=== PATIENT | female | born 1980 | race Hispanic/Latino ===

== ENCOUNTER 2017-10-19 17:44 | Emergency (ER) | payer MEDICAID, OTHER ==
[2017-10-19 18:29] LABS: APPEARANCE,URINE Clear (CLEAR); BILIRUBIN,URINE Negative (NEGATIVE); COLOR,URINE Yellow (YELLOW); GLUCOSE, URINE (UA) Negative (NEGATIVE); KETONES,URINE Negative (NEGATIVE); LEUKOCYTE ESTERASE ,URINE Negative (NEGATIVE); NITRATE,URINE Negative (NEGATIVE); OCCULT BLOOD,URINE Trace (NEGATIVE); PROTEIN,URINE Negative (NEGATIVE); UROBILINOGEN,URINE 0.2 mg/dL (0.2-1.0)
[2017-10-19 18:29] LABS: EOSINOPHILS % (AUTO) 0.6 % (0.0-8.0); HEMATOCRIT 41.1 % (36-48); MEAN CORPUSCULAR HEMOGLOBIN 31.5 pg (27.0-33.0); MEAN CORPUSCULAR HGB CONC 34.3 g/dL (32.0-36.0); MEAN CORPUSCULAR VOLUME 91.6 fL (79-99); MONOCYTES % (AUTO) 7.8 % (3.0-13.0); NEUTROPHILS % (AUTO) 72.6 % (40.0-77.0); PLATELET COUNT (AUTO) 281 K/uL (130-400); RED BLOOD CELL COUNT(AUTO) 4.49 MIL/uL (4.00-5.50); RED CELL DISTRIBUTION WIDTH 13.4 % (11.0-15.5); WHITE BLOOD COUNT (AUTO) 9.4 K/uL (4.8-10.8)
[2017-10-19] MEDS ORDERED: MORPHINE SULFATE 4 MG/1ML SYG ONE (18:29)
[2017-10-19] MEDS ORDERED: SODIUM CHLORIDE 0.9% 1000ML 1,000 ML IV ONE (18:29)
[2017-10-19] MEDS ORDERED: ONDANSETRON HCL 4 MG/2 ML VIAL ONE (18:30)
[2017-10-19 18:31] LABS: HCG,QUAL RESULT NEGATIVE (NEGATIVE)
[2017-10-19 18:38] LABS: CREATININE 0.8 mg/dL (0.5-1.5); POTASSIUM 3.5 mmol/L (3.5-5.1)
[2017-10-19 18:41] LABS: BACTERIA,URINE None Seen /HPF (None Seen); RBC,URINE 0-1 /HPF (0-1); SQUAMOUS EPITHELIAL CELL,UR 0-2 /HPF (0-2); WBC,URINE None Seen /HPF (0-1)
[2017-10-19] MEDS ORDERED: KETOROLAC TROMETHAMINE 30MG/ML ONE (19:34)
== END 2017-10-19 20:06 | disposition home or self-care (01) ==
LOC: EDH 17:44
DX: S39.012A Strain of muscle, fascia and tendon of lower back, initial encounter (principal); R35.0 Frequency of micturition; X58.XXXA Exposure to other specified factors, initial encounter; Y93.89 Activity, other specified; Y92.89 Other specified places as the place of occurrence of the external cause; Y99.8 Other external cause status
CPT/HCPCS: 36415; 74176; 80048; 81001; 81025; 85025; 96374; 96375; 99285; J1885; J2270; J2405; J7030

== ENCOUNTER 2018-06-06 07:25 | Emergency (ER) | payer SELFPAY ==
[2018-06-06 07:58] LABS: APPEARANCE,URINE Clear (CLEAR); BILIRUBIN,URINE Negative (NEGATIVE); COLOR,URINE Yellow (YELLOW); GLUCOSE, URINE (UA) Negative (NEGATIVE); KETONES,URINE Negative (NEGATIVE); LEUKOCYTE ESTERASE ,URINE Trace (NEGATIVE); NITRATE,URINE Negative (NEGATIVE); OCCULT BLOOD,URINE Small (NEGATIVE); PH,URINE 6.5 (5.0-8.0); PROTEIN,URINE Negative (NEGATIVE)
[2018-06-06 08:03] LABS: HCG,QUAL RESULT NEGATIVE (NEGATIVE)
[2018-06-06 08:09] LABS: BACTERIA,URINE Rare /HPF (None Seen); RBC,URINE 0-1 /HPF (0-1); SQUAMOUS EPITHELIAL CELL,UR Rare /HPF (0-2); WBC,URINE 0-1 /HPF (0-1)
[2018-06-06] MEDS ORDERED: ORPHENADRINE CITRATE 30 MG/ML ML ONE (08:22)
== END 2018-06-06 08:38 | disposition home or self-care (01) ==
LOC: EDH 07:25
DX: S33.5XXA Sprain of ligaments of lumbar spine, initial encounter (principal); X50.0XXA Overexertion from strenuous movement or load, initial encounter; Y93.89 Activity, other specified; Y92.89 Other specified places as the place of occurrence of the external cause; Y99.8 Other external cause status
CPT/HCPCS: 81001; 81025; 96372; 99283; J2360

== ENCOUNTER 2020-02-25 08:40 | Observation (INO) | payer MEDICAID ==
[~2020-02-25] VITALS: Ht 157.5 cm; Wt 78.0 kg
[2020-02-25 09:26] LABS: APPEARANCE,URINE Clear (CLEAR); BILIRUBIN,URINE Negative (NEGATIVE); COLOR,URINE Yellow (YELLOW); GLUCOSE, URINE (UA) Negative (NEGATIVE); KETONES,URINE Negative (NEGATIVE); LEUKOCYTE ESTERASE ,URINE Trace (NEGATIVE); NITRATE,URINE Negative (NEGATIVE); OCCULT BLOOD,URINE Negative (NEGATIVE); PH,URINE 7.5 (5.0-8.0); PROTEIN,URINE Negative (NEGATIVE)
[2020-02-25 09:51] LABS: BACTERIA,URINE Rare /HPF (None Seen); RBC,URINE 0-1 /HPF (0-1); SQUAMOUS EPITHELIAL CELL,UR Rare /HPF (0-2); WBC,URINE 0-1 /HPF (0-1)
== END 2020-02-25 10:17 | disposition home or self-care (01) ==
LOC: EDH 08:40 → LDH 08:41 → UNDOADMOB 08:41 → LDH 08:51 → UNDODISOB 10:17
PROVIDERS: ADMIT Obstetrics & Gynecology; ATTEND Obstetrics & Gynecology
DX: O36.8130 Decreased fetal movements, third trimester, not applicable or unspecified (principal); O09.522 Supervision of elderly multigravida, second trimester; O26.852 Spotting complicating pregnancy, second trimester; Z3A.25 25 weeks gestation of pregnancy
CPT/HCPCS: 59025; 76819; 81001; 99284; G0378

== ENCOUNTER 2020-05-13 16:57 | Inpatient (IN) | payer MEDICAID ==
[~2020-05-13] VITALS: Ht 157.5 cm; Wt 82.1 kg
[2020-05-13] MEDS ORDERED: PROMETHAZINE HCL 25 MG/ML 1ML AMPULE IM PRN (17:15)
[2020-05-13] MEDS ORDERED: MEPERIDINE-PF 50 MG/ML SYG IVP PRN (17:15)
[2020-05-13] MEDS ORDERED: ROPIVACAINE 0.2% 100ML VIAL 100 ML EP SCH (17:15)
[2020-05-13] MEDS ORDERED: EPHEDRINE SULFATE 50 MG/ML AMPULE IVP PRN (17:15)
[2020-05-13] MEDS ORDERED: NALOXONE HCL 0.4 MG/1 ML ML IV PRN (17:15)
[2020-05-13] MEDS ORDERED: AMPICILLIN 2GM+NS 100ML 100 ML IV SCH (17:15)
[2020-05-13] MEDS ORDERED: LACTATED RINGERS 500 ML 500 ML IV PRN (17:15)
[2020-05-13] MEDS: LACTATED RINGERS 1000ML 1,000 ML IV PRN (18:00)
[2020-05-13 18:12] LABS: HEMATOCRIT 35.7 % (36-48); MEAN CORPUSCULAR HEMOGLOBIN 32.3 pg (27.0-33.0); MEAN CORPUSCULAR HGB CONC 34.2 g/dL (32.0-36.0); MEAN CORPUSCULAR VOLUME 94.4 fL (79-99); RED BLOOD CELL COUNT(AUTO) 3.78 MIL/uL (4.00-5.50); RED CELL DISTRIBUTION WIDTH 14.4 % (11.0-15.5); WHITE BLOOD COUNT (AUTO) 7.4 K/uL (4.8-10.8)
[2020-05-13 18:20] LABS: BILIRUBIN,URINE Negative (NEGATIVE); COLOR,URINE Yellow (YELLOW); GLUCOSE, URINE (UA) Negative (NEGATIVE); KETONES,URINE Negative (NEGATIVE); LEUKOCYTE ESTERASE ,URINE Negative (NEGATIVE); NITRATE,URINE Negative (NEGATIVE); OCCULT BLOOD,URINE Small (NEGATIVE); PH,URINE 7.5 (5.0-8.0); PROTEIN,URINE Negative (NEGATIVE); UROBILINOGEN,URINE 0.2 mg/dL (0.2-1.0)
[2020-05-13 18:34] LABS: APPEARANCE,URINE CLEAR (CLEAR)
[2020-05-13 18:36] LABS: BACTERIA,URINE Rare /HPF (None Seen); WBC,URINE None Seen /HPF (0-1)
[2020-05-13] MEDS ORDERED: DINOPROSTONE 10 MG VAGINAL SUPP VG SCH (18:40)
[2020-05-13 18:46] VITALS: BP 116/62
[2020-05-13] MEDS: AMPICILLIN 1GM+NS 50ML 50 ML IV SCH (22:29)
[2020-05-14] MEDS: AMPICILLIN 1GM+NS 50ML 50 ML IV SCH ×6 (01:29→21:00)
[2020-05-14] MEDS: LACTATED RINGERS 1000ML 1,000 ML IV PRN ×2 (01:29→09:54)
[2020-05-14] MEDS ORDERED: OXYTOCIN-LR 20 UNITS/1000 ML 1,000 ML IV SCH ×2 (06:00→20:45)
[2020-05-14] MEDS ORDERED: FENTANYL CITRATE PF 50 MCG/1 ML 2ML VIAL ONE (15:37)
[2020-05-14] MEDS ORDERED: MISOPROSTOL 200 MCG TABLET ONE (18:24)
[2020-05-14] MEDS ORDERED: TRANEXAMIC ACID 1000MG/10ML ONE (18:24)
[2020-05-14] MEDS ORDERED: OXYTOCIN 10 USP UNITS/ML ONE (18:24)
[2020-05-14] MEDS ORDERED: METHYLERGONOVINE MALEATE 0.2 MG/1 ML ML ONE (18:25)
[2020-05-14] MEDS ORDERED: WITCH HAZEL 1 PAD TP PRN (20:45)
[2020-05-14] MEDS ORDERED: MEASLES/MUMPS/RUBELLA VACCINE, LIVE 0.5 ML/VIAL SQ PRN (20:45)
[2020-05-14] MEDS ORDERED: BENZOCAINE/LANOLIN/ALOE VERA 60 ML AEROSOL TP PRN (20:45)
[2020-05-14] MEDS ORDERED: DIPH,PERTUSS(ACELL),TET VAC/PF 0.5 ML VIAL IM PRN (20:45)
[2020-05-14] MEDS ORDERED: LANOLIN 30GM OINTMENT TP PRN (20:45)
[2020-05-14] MEDS ORDERED: ACETAMINOPHEN 325 MG TAB PO PRN (20:45)
[2020-05-14 23:40] VITALS: BP 102/53
[2020-05-14] MEDS: IBUPROFEN 600 MG TABLET PO PRN (23:47)
[2020-05-14] MEDS: DOCUSATE SODIUM 100 MG CAP PO SCH (23:47)
[2020-05-15] MEDS: AMPICILLIN 1GM+NS 50ML 50 ML IV SCH ×3 (01:00→02:49)
[2020-05-15] MEDS ORDERED: PREN-154 PO (01:37)
[2020-05-15 03:26] VITALS: BP 103/51
[2020-05-15] MEDS: LACTATED RINGERS 1000ML 1,000 ML IV PRN (06:10)
[2020-05-15 06:34] LABS: HEMATOCRIT 35.9 % (36-48); MEAN CORPUSCULAR HEMOGLOBIN 32.4 pg (27.0-33.0); MEAN CORPUSCULAR HGB CONC 34.5 g/dL (32.0-36.0); MEAN CORPUSCULAR VOLUME 93.7 fL (79-99); RED BLOOD CELL COUNT(AUTO) 3.83 MIL/uL (4.00-5.50); RED CELL DISTRIBUTION WIDTH 14.4 % (11.0-15.5); WHITE BLOOD COUNT (AUTO) 15.4 K/uL (4.8-10.8)
[2020-05-15 06:36] VITALS: BP 104/61
[2020-05-15] MEDS ORDERED: LIDOCAINE PF 100MG/5ML (2%) SYRINGE 5ML ONE (06:43)
[2020-05-15] MEDS ORDERED: PROPOFOL 10 MG/ML 20ML VIAL IV ONE (06:43)
[2020-05-15] MEDS ORDERED: DEXAMETHASONE SOD PHOSPHATE 10MG/ML 1ML VIAL ONE (06:43)
[2020-05-15] MEDS ORDERED: SUCCINYLCHOLINE CHLORIDE 20 MG/ML 10 ML VIAL ONE (06:43)
[2020-05-15] MEDS ORDERED: ROCURONIUM 10MG/1ML SYR 10 MG/ML ML ONE (06:44)
[2020-05-15] MEDS ORDERED: NEOSTIGMINE 5MG/5ML SYR IV ONE (06:44)
[2020-05-15] MEDS ORDERED: GLYCOPYRROLATE 1 MG/5 ML SYRINGE ONE (06:44)
[2020-05-15] MEDS ORDERED: MIDAZOLAM HCL 1 MG/ML 2ML VIAL ONE (06:44)
[2020-05-15] MEDS ORDERED: ONDANSETRON 4MG INJ ONE (06:44)
[2020-05-15] MEDS ORDERED: FENTANYL CITRATE PF 50 MCG/1 ML 2ML VIAL ONE (06:44)
[2020-05-15] MEDS ORDERED: LIDOCAINE HCL-MPF 2% 10ML AMP IJ ONE (06:57)
[2020-05-15] MEDS ORDERED: LIDOCAINE 2%-EPI 1:200,000 20 ML VIAL IJ ONE (07:01)
[2020-05-15] MEDS ORDERED: CEFAZOLIN SODIUM 1 GM VIAL IVP ONE (07:30)
[2020-05-15] MEDS ORDERED: CEFAZOLIN SODIUM 1 GM VIAL ONE (07:37)
[2020-05-15 09:13] LABS: HEPATITIS Bs ANTIGEN SCREEN P Negative (Negative)
[2020-05-15 09:36] VITALS: BP 104/63
[2020-05-15] MEDS: DOCUSATE SODIUM 100 MG CAP PO SCH (09:54)
[2020-05-15] MEDS: ACETAMINOPHEN WITH CODEINE 1 TAB TAB PO PRN ×2 (09:57→16:23)
[2020-05-15 11:33] VITALS: BP 104/69
[2020-05-15 16:33] VITALS: BP 95/52
[2020-05-15 19:50] VITALS: BP 105/64
[2020-05-15] MEDS: IBUPROFEN 600 MG TABLET PO PRN (20:09)
== END 2020-05-15 21:05 | disposition home or self-care (01) | DRG 541 ==
LOC: LDH 16:57 → WSH 05-14 23:40
PROVIDERS: ADMIT Obstetrics & Gynecology; ATTEND Obstetrics & Gynecology
PROC: 10E0XZZ Delivery of Products of Conception, External Approach (ICD-10-PCS; principal; 2020-05-14)
PROC: 10907ZC Drainage of Amniotic Fluid, Therapeutic from Products of Conception, Via Natural or Artificial Opening (ICD-10-PCS; 2020-05-14)
PROC: 3E0234Z Introduction of Serum, Toxoid and Vaccine into Muscle, Percutaneous Approach (ICD-10-PCS; 2020-05-14)
PROC: 3E0134Z Introduction of Serum, Toxoid and Vaccine into Subcutaneous Tissue, Percutaneous Approach (ICD-10-PCS; 2020-05-14)
PROC: 3E0R3BZ Introduction of Anesthetic Agent into Spinal Canal, Percutaneous Approach (ICD-10-PCS; 2020-05-14)
PROC: 00HU33Z Insertion of Infusion Device into Spinal Canal, Percutaneous Approach (ICD-10-PCS; 2020-05-14)
PROC: 3E033VJ Introduction of Other Hormone into Peripheral Vein, Percutaneous Approach (ICD-10-PCS; 2020-05-14)
PROC: 3E0D7GC Introduction of Other Therapeutic Substance into Mouth and Pharynx, Via Natural or Artificial Opening (ICD-10-PCS; 2020-05-14)
PROC: 0UB70ZZ Excision of Bilateral Fallopian Tubes, Open Approach (ICD-10-PCS; 2020-05-15)
DX: O99.62 Diseases of the digestive system complicating childbirth (principal); O99.824 Streptococcus B carrier state complicating childbirth; K21.9 Gastro-esophageal reflux disease without esophagitis; Z3A.39 39 weeks gestation of pregnancy; Z37.0 Single live birth; Z23 Encounter for immunization; Z30.2 Encounter for sterilization; Z20.822 Contact with and (suspected) exposure to COVID-19
CPT/HCPCS: 36415; 76805; 81001; 85027; 86592; 86701; 86850; 86900; 86901; 87340; 87390; 87426; 88302; A4314; G0378; J0290; J0330; J0690; J1100; J2001; J2210; J2250; J2405; J2590; J2704; J2710; J2795; J3010; J3490; J7120